=== PATIENT | female | born 1940 | race Caucasian/White ===

== ENCOUNTER 2019-03-10 10:43 | Observation (INO) | payer BC, MEDICARE ==
--- NOTE | 2019-03-10 11:35 | EDM.PDOC ---
ED HPI GENERAL MEDICAL PROBLEM - General Chief Complaint: General Stated Complaint: MED[facility] Time Seen by Provider: 03/10/19 11:00 Source of Information: Reports: Patient, EMS, Family History Limitations: Reports: No Limitations - History of Present Illness INITIAL COMMENTS - FREE TEXT/NARRATIVE: 78-year-old female brought in by ambulance, mainly at the request of her son because of several falls over the past 3 days. This morning he found her on the floor next to her recliner chair, at some point and overnight she fell out of the chair and decided to just sleep on the floor. She has some mild left shoulder discomfort, no other specific complaint. She herself does not want to be here, she just wants to . No shortness of breath or chest pain. She has hypertension but doesn't take medicine as prescribed. She is supposed be taking hydrochlorothiazide and lisinopril. The family is wondering if she's had a stroke, her glucose was checked in route by EMS which was within normal limits. Family also feels that she has persistent slurred speech and doesn't seen a strong on the right side although this is not appreciable from EMS or my immediate assessment. Onset: Unknown/Unsure Associated Symptoms: Reports: Confusion (Over the past several months she's had increasing confusion, repetitive stories and apparent developing dementia), Weakness. 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 & Family History - Tobacco Use Smoking Status *Q: Former Smoker Years of Tobacco use: 1 Packs/Tins Daily: 1 Used Tobacco, but Quit: Yes Month/Year Tobacco Last Used: 09/1989 - Caffeine Use Caffeine Use: Reports: Coffee Caffeine Use Comment: one cup per day - Alcohol Use Days Per Week of Alcohol Use: 7 Number of Drinks Per Day: 3 Total Drinks Per Week: 21 Date of Last Drink: 03/10/19 - Recreational Drug Use Recreational Drug Use: No ED ROS GENERAL - Review of Systems Review Of Systems: See Below Constitutional: Denies: Fever, Chills, Malaise HEENT: Denies: Vision Change Respiratory: Denies: Shortness of Breath Cardiovascular: Denies: Chest Pain GI/Abdominal: Denies: Abdominal Pain, Nausea, Vomiting : Reports: No Symptoms Musculoskeletal: Reports: Shoulder Pain (Mild left shoulder pain, especially with movement) Skin: Denies: Bruising Neurological: Reports: Confusion ED EXAM, GENERAL - Physical Exam Exam: See Below Exam Limited By: No Limitations General Appearance: Alert, No Apparent Distress Eye Exam: Bilateral Eye: EOMI, PERRL Head: Atraumatic, Normocephalic Neck: Supple, Non-Tender Respiratory/Chest: No Respiratory Distress, Lungs Clear Cardiovascular: Regular Rate, Rhythm. No: Extra Beats GI/Abdominal: Soft, Non-Tender Extremities: Other (Right lower extremity has 1+ pitting edema to the knee, left has a trace if any edema. Some mild tenderness to palpation of the posterior lower right leg.) Neurological: Alert, Oriented, Other (Her speech is generally slurred slightly, there is no significant expressive aphasia, more of a very minimal dysarthria. I don't appreciate facial asymmetry, her upper and lower extremities are generally equal in strength with the family claims that her right side is usually stronger.) Psychiatric: Normal Affect, Normal Mood Skin Exam: Warm, Dry Course - Vital Signs Last Recorded V/S: Last Vital Signs Temp 97.4 F 03/12/19 04:00 Pulse 91 03/12/19 04:00 Resp 16 03/12/19 04:00 BP 160/95 H 03/12/19 04:00 Pulse Ox 96 03/12/19 04:00 - Orders/Labs/Meds Orders: Medication Orders Acetaminophen (Tylenol) 650 mg PO Q4H PRN PRN Reason: Pain (Mild 1-3)/fever Last Admin: 03/11/19 00:40 Dose: 650 mg Hydrocodone Bitart/Acetaminophen ([place] 325-10 Mg) 1 tab PO Q4H PRN PRN Reason: Pain Last Admin: 03/11/19 20:27 Dose: 1 tab Admin: 03/11/19 13:44 Dose: 1 tab Aspirin (Aspirin) 81 mg PO DAILY [facility] Last Admin: 03/11/19 09:32 Dose: 81 mg Admin: 03/10/19 18:36 Dose: 81 mg Divalproex Sodium (Divalproex Sodium) 250 mg PO BIDMEALS [facility] Last Admin: 03/11/19 17:07 Dose: 250 mg Admin: 03/11/19 08:07 Dose: 250 mg Admin: 03/10/19 17:34 Dose: 250 mg Enoxaparin Sodium (Lovenox) 40 mg SUBCUT Q24H [facility] Last Admin: 03/11/19 17:07 Dose: 40 mg Hydrochlorothiazide (Hydrochlorothiazide) 12.5 mg PO DAILY [facility] Last Admin: 03/11/19 08:07 Dose: 12.5 mg Admin: 03/10/19 17:34 Dose: 12.5 mg Lisinopril (Prinivil) 20 mg PO DAILY [facility] Last Admin: 03/11/19 08:07 Dose: 20 mg Admin: 03/10/19 17:34 Dose: 20 mg Melatonin (Melatonin) 9 mg PO BEDTIME [facility] Last Admin: 03/11/19 20:27 Dose: 9 mg Admin: 03/10/19 22:09 Dose: 9 mg Ondansetron HCl (Zofran) 4 mg IV Q4H PRN PRN Reason: Nausea/Vomiting Polyethylene Glycol (Miralax) 17 gm PO DAILY PRN PRN Reason: Constipation Sodium Chloride (Saline Flush) 10 ml FLUSH ASDIRECTED PRN PRN Reason: Keep Vein Open Labs: Laboratory Tests 03/10/19 03/10/19 03/10/19 Range/Units 12:08 12:08 12:08 WBC 9.9 (4.5-11.0) K/uL RBC 4.12 (3.30-5.50) M/uL Hgb 12.3 (12.0-15.0) g/dL Hct 38.5 (36.0-48.0) % MCV 93 (80-98) fL MCH 30 (27-31) pg MCHC 32 (32-36) % Plt Count 207 (150-400) K/uL Neut % (Auto) 87 H (36-66) % Lymph % (Auto) 6 L (24-44) % [place] % (Auto) 6 (2-6) % Eos % (Auto) 1 L (2-4) % Baso % (Auto) 0 (0-1) % D-Dimer, Quantitative 874 H (0.0-400.0) ng/mL Sodium 138 L (140-148) mmol/L Potassium 4.3 (3.6-5.2) mmol/L Chloride 104 (100-108) mmol/L Carbon Dioxide 28 (21-32) mmol/L Anion Gap 10.3 (5.0-14.0) mmol/L BUN 27 H D (7-18) mg/dL Creatinine 1.3 H (0.6-1.0) mg/dL Est Cr Clr Drug Dosing 29.80 mL/min Estimated GFR (MDRD) 39 L (>60) Glucose 99 (74-106) mg/dL Calcium 9.0 (8.5-10.1) mg/dL Total Bilirubin 1.0 D (0.2-1.0) mg/dL AST 37 (15-37) U/L ALT 25 (12-78) U/L Alkaline Phosphatase 58 (46-116) U/L Creatine Kinase (26-192) U/L Total Protein 6.7 (6.4-8.2) g/dL Albumin 3.2 L (3.4-5.0) g/dL Globulin 3.5 (2.3-3.5) g/dL Albumin/Globulin Ratio 0.9 L (1.2-2.2) 03/10/19 Range/Units 12:08 WBC (4.5-11.0) K/uL RBC (3.30-5.50) M/uL Hgb (12.0-15.0) g/dL Hct (36.0-48.0) % MCV (80-98) fL MCH (27-31) pg MCHC (32-36) % Plt Count (150-400) K/uL Neut % (Auto) (36-66) % Lymph % (Auto) (24-44) % [place] % (Auto) (2-6) % Eos % (Auto) (2-4) % Baso % (Auto) (0-1) % D-Dimer, Quantitative (0.0-400.0) ng/mL Sodium (140-148) mmol/L Potassium (3.6-5.2) mmol/L Chloride (100-108) mmol/L Carbon Dioxide (21-32) mmol/L Anion Gap (5.0-14.0) mmol/L BUN (7-18) mg/dL Creatinine (0.6-1.0) mg/dL Est Cr Clr Drug Dosing mL/min Estimated GFR (MDRD) (>60) Glucose (74-106) mg/dL Calcium (8.5-10.1) mg/dL Total Bilirubin (0.2-1.0) mg/dL AST (15-37) U/L ALT (12-78) U/L Alkaline Phosphatase (46-116) U/L Creatine Kinase 419 H (26-192) U/L Total Protein (6.4-8.2) g/dL Albumin (3.4-5.0) g/dL Globulin (2.3-3.5) g/dL Albumin/Globulin Ratio (1.2-2.2) Meds: Medications Generic Name Dose Route Start Last Admin Trade Name Freq PRN Reason Stop Dose Admin Acetaminophen 650 mg 03/10/19 16:09 03/11/19 00:40 Tylenol PO 650 mg Q4H PRN Administration Pain (Mild 1-3)/fever Hydrocodone Bitart/Acetaminophen 1 tab 03/11/19 13:18 03/11/19 20:27 Cornish 325-10 Mg PO 1 tab Q4H PRN Administration Pain Aspirin 81 mg 03/10/19 18:30 03/11/19 09:32 Aspirin PO 81 mg DAILY [facility] Administration Divalproex Sodium 250 mg 03/10/19 17:00 03/11/19 17:07 Divalproex Sodium PO 250 mg BIDMEALS [facility] Administration Enoxaparin Sodium 40 mg 03/11/19 18:00 03/11/19 17:07 Lovenox SUBCUT 40 mg Q24H [facility] Administration Hydrochlorothiazide 12.5 mg 03/10/19 16:30 03/11/19 08:07 Hydrochlorothiazide PO 12.5 mg DAILY [facility] Administration Lisinopril 20 mg 03/10/19 16:30 03/11/19 08:07 Prinivil PO 20 mg DAILY [facility] Administration Melatonin 9 mg 03/10/19 21:00 03/11/19 20:27 Melatonin PO 9 mg BEDTIME [facility] Administration Ondansetron HCl 4 mg 03/10/19 16:09 Zofran IV Q4H PRN Nausea/Vomiting Polyethylene Glycol 17 gm 03/10/19 16:09 Miralax PO DAILY PRN Constipation Sodium Chloride 10 ml 03/10/19 16:09 Saline Flush FLUSH ASDIRECTED PRN Keep Vein Open Discontinued Medications Generic Name Dose Route Start Last Admin Trade Name Freq PRN Reason Stop Dose Admin Enoxaparin Sodium 30 mg 03/10/19 18:00 03/10/19 17:34 Lovenox SUBCUT 30 mg Q24H [facility] Administration Sodium Chloride 1,000 mls @ 500 mls/hr 03/10/19 13:15 03/10/19 13:44 Normal Saline IV 500 mls/hr ASDIRECTED [facility] Administration Sodium Chloride 1,000 mls @ 75 mls/hr 03/10/19 16:09 03/11/19 05:38 Normal Saline IV 75 mls/hr ASDIRECTED [facility] Administration - Re-Assessments/Exams Free Text/Narrative Re-Assessment/Exam: 03/10/19 11:35 CBC CMP d-dimer and CK were obtained, along with a CT of the head and left shoulder x-ray. 03/10/19 13:44 CBC is normal, d-dimer mildly elevated and CK 491. CT of the head showed atrophy but no acute findings. Left shoulder x-ray was negative. Because of the elevated d-dimer and asymmetric swelling of the lower extremity her right leg was assessed with ultrasound and was negative for DVT. Her blood pressure was elevated on arrival but normalized without treatment. Creatinine was elevated at 1.3 compared to 1.0 just a month ago, GFR has also dropped into the 30s so she was hydrated with 1 L of normal saline over 2 hours. When I discussed all these findings with the family, they were concerned about her ability to go home without continuing to fall and her noncompliance with medications. They're hoping she can be admitted for further observation, hydration, strengthening, and social service consultation for placement or other options of care. Departure - Departure Time of Disposition: 16:14 Disposition: Admitted As Inpatient 64 Clinical Impression: Weakness generalized, Dehydration Contusion of shoulder, left Qualifiers: Encounter type: initial encounter Qualified Code(s): S40.012A - Contusion of left shoulder, initial encounter - Discharge Information
--- NOTE | 2019-03-10 12:18 | CRLCR ---
INDICATION: Patient fell; pain left shoulder. COMPARISON: None. Technique: Two-view study left shoulder. FINDINGS: No evidence of fracture or dislocation. No bone or soft tissue abnormalities. IMPRESSION: Negative radiographic examination of the left shoulder. Dictated by Deena Best MD @ Mar 10 2019 12:15PM Signed by Dr. Deena Best @ Mar 10 2019 12:16PM
--- NOTE | 2019-03-10 12:35 | CRLCT ---
INDICATION: 78-year-old female. Falls. Increased weakness. TECHNIQUE: CT images foramen magnum to the vertex without contrast. FINDINGS: The ventricles and subarachnoid spaces are proportionately enlarged due to a fall. No acute hemorrhage. No mass effect. Preservation of marcos-white interface without evidence of focal infarction. No posterior fossa hemorrhage or mass effect. Bony calvarium is unremarkable. IMPRESSION: No evidence of acute intracranial hemorrhage or skull fracture. atrophy and age-related findings. Please note that all CT scans at this facility use dose modulation, iterative reconstruction, and/or weight-based dosing when appropriate to reduce radiation dose to as low as reasonably achievable. Dictated by Jose Miguel Brizuela MD @ Mar 10 2019 12:12PM Signed by Dr. Jose Miguel Brizuela @ Mar 10 2019 12:33PM
[2019-03-10] MEDS ORDERED: Sodium Chloride 0.9% 1,000 ML IV SCH (13:15)
--- NOTE | 2019-03-10 13:58 | CRLUS ---
INDICATION: Leg pain and swelling TECHNIQUE: Ultrasound venous duplex lower right extremity. Compression venous exam was performed using marcos-scale, color Doppler, and spectral Doppler imaging. COMPARISON: None. FINDINGS: Sonographic imaging demonstrates the right common femoral, deep femoral, superficial femoral, popliteal, posterior tibial and greater saphenous and the contralateral left common femoral veins to be fully compressible with normal color Doppler blood flow. IMPRESSION: Normal right lower extremity venous ultrasound, no sign of deep venous thrombosis. Dictated by Vinnie Bowie MD @ 03/10/2019 1:57:09 PM Dictated by: Vinnie Bowie MD @ 03/10/2019 13:57:19 (Electronically Signed)
[2019-03-10] MEDS ORDERED: Polyethylene Glycol 3350 Powder 17 GM Packet PO PRN (16:09)
[2019-03-10] MEDS ORDERED: Sodium Chloride 0.9% 10 ML Syringe FLUSH PRN (16:09)
[2019-03-10] MEDS ORDERED: Acetaminophen 325 MG Tab PO PRN (16:09)
[2019-03-10] MEDS ORDERED: Ondansetron 4 MG/2 ML SDV IV PRN (16:09)
[2019-03-10] MEDS ORDERED: Enoxaparin 40 MG/0.4 ML Syringe SUBCUT SCH (16:09)
[2019-03-10] MEDS: Hydrochlorothiazide 12.5 MG Cap PO SCH (17:34)
[2019-03-10] MEDS: Divalproex Sodium Delayed-Release 250 MG Tab.CR PO SCH (17:34)
[2019-03-10] MEDS: Lisinopril 20 MG Tab PO SCH (17:34)
[2019-03-10] MEDS: Sodium Chloride 0.9% 1,000 ML IV SCH (17:43)
[2019-03-10] MEDS ORDERED: Enoxaparin 30 MG/0.3 ML Syringe SUBCUT SCH (18:00)
--- NOTE | 2019-03-10 18:00 | PCM.HP ---
H&P History of Present Illness - General Date of Service: 03/10/19 Admit Problem/Dx: Admission Diagnosis/Problem Admission Diagnosis/Problem Weakness Source of Information: Family, Provider, RN Notes Reviewed History Limitations: Reports: Altered Mental Status (Significant dementia) - History of Present Illness Initial Comments - Free Text/Narative: Ms. Blanchard is an 78-year-old woman who was admitted through the emergency department to observation status because of increased weakness and several recent falls at home. I'm unable to obtain significant history from the patient because of her underlying dementia. Family reports that she has had 4 falls over the last 3 days. Family has noted right-sided weakness causing inability to ambulate or transfer. Compared to yesterday they feel the weakness has improved. They do not want to proceed with aggressive interventions or evaluation. 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 History - Tobacco Use Smoking Status *Q: Never Smoker Years of Tobacco use: 1 Packs/Tins Daily: 1 Used Tobacco, but Quit: Yes Month/Year Tobacco Last Used: 09/1989 Second Hand Smoke Exposure: No - Caffeine Use Caffeine Use: Reports: None Caffeine Use Comment: one cup per day - Alcohol Use Days Per Week of Alcohol Use: 7 Number of Drinks Per Day: 1 Total Drinks Per Week: 7 Date of Last Drink: 03/10/19 - Recreational Drug Use Recreational Drug Use: No H&P Review of Systems - Review of Systems: Review Of Systems: Unable To Obtain General: Reports: ROS unobtainable (Dementia) Exam - Exam Exam: See Below - Vital Signs Vital Signs: Last Vital Signs Temp 97.2 F 03/10/19 16:09 Pulse 64 03/10/19 16:09 Resp 18 03/10/19 16:09 BP 171/112 H 03/10/19 17:34 Pulse Ox 100 03/10/19 10:53 Weight: 128 lb 6.4 oz - Exam Quality Assessment: DVT Prophylaxis General: Alert, Cooperative, Mild Distress HEENT: Conjunctiva Clear, Hearing Intact, Normal Nasal Septum, Posterior Pharynx Clear, Pupils Equal. No: Mucosa Moist & [place] Neck: Supple, Trachea Midline, +2 Carotid Pulse wo Bruit Lungs: Clear to Auscultation, Normal Respiratory Effort Cardiovascular: Regular Rate, Regular Rhythm, Normal S1, Normal S2. No: Systolic Murmur, Diastolic Murmur GI/Abdominal Exam: Soft, Non-Tender, No Organomegaly, No Distention Back Exam: Normal Inspection, Full Range of Motion Extremities: Non-Tender, No Pedal Edema Skin: Warm, Dry, Ecchymosis Neurological: Sensation Intact. No: Cranial Nerves Intact (Mild right facial weakness), Strength Equal Bilateral (Mild weakness right upper extremity with discoordination), Normal Speech (Speech is somewhat slurred) Neuro Extensive - Mental Status: Alert, Normal Mood/Affect, Disorientation to Place, Disorientation to Time, Memory Loss-Remote Events, Memory Loss-Recent Events. No: Oriented x3, Normal Cognition, Memory Intact - Patient Data Lab Results Last 24 hrs: Laboratory Results - last 24 hr 03/10/19 03/10/19 03/10/19 Range/Units 12:08 12:08 12:08 WBC 9.9 (4.5-11.0) K/uL RBC 4.12 (3.30-5.50) M/uL Hgb 12.3 (12.0-15.0) g/dL Hct 38.5 (36.0-48.0) % MCV 93 (80-98) fL MCH 30 (27-31) pg MCHC 32 (32-36) % Plt Count 207 (150-400) K/uL Neut % (Auto) 87 H (36-66) % Lymph % (Auto) 6 L (24-44) % [place] % (Auto) 6 (2-6) % Eos % (Auto) 1 L (2-4) % Baso % (Auto) 0 (0-1) % D-Dimer, Quantitative 874 H (0.0-400.0) ng/mL Sodium 138 L (140-148) mmol/L Potassium 4.3 (3.6-5.2) mmol/L Chloride 104 (100-108) mmol/L Carbon Dioxide 28 (21-32) mmol/L Anion Gap 10.3 (5.0-14.0) mmol/L BUN 27 H D (7-18) mg/dL Creatinine 1.3 H (0.6-1.0) mg/dL Est Cr Clr Drug Dosing 29.80 mL/min Estimated GFR (MDRD) 39 L (>60) Glucose 99 (74-106) mg/dL Calcium 9.0 (8.5-10.1) mg/dL Total Bilirubin 1.0 D (0.2-1.0) mg/dL AST 37 (15-37) U/L ALT 25 (12-78) U/L Alkaline Phosphatase 58 (46-116) U/L Creatine Kinase (26-192) U/L Total Protein 6.7 (6.4-8.2) g/dL Albumin 3.2 L (3.4-5.0) g/dL Globulin 3.5 (2.3-3.5) g/dL Albumin/Globulin Ratio 0.9 L (1.2-2.2) 03/10/19 Range/Units 12:08 WBC (4.5-11.0) K/uL RBC (3.30-5.50) M/uL Hgb (12.0-15.0) g/dL Hct (36.0-48.0) % MCV (80-98) fL MCH (27-31) pg MCHC (32-36) % Plt Count (150-400) K/uL Neut % (Auto) (36-66) % Lymph % (Auto) (24-44) % [place] % (Auto) (2-6) % Eos % (Auto) (2-4) % Baso % (Auto) (0-1) % D-Dimer, Quantitative (0.0-400.0) ng/mL Sodium (140-148) mmol/L Potassium (3.6-5.2) mmol/L Chloride (100-108) mmol/L Carbon Dioxide (21-32) mmol/L Anion Gap (5.0-14.0) mmol/L BUN (7-18) mg/dL Creatinine (0.6-1.0) mg/dL Est Cr Clr Drug Dosing mL/min Estimated GFR (MDRD) (>60) Glucose (74-106) mg/dL Calcium (8.5-10.1) mg/dL Total Bilirubin (0.2-1.0) mg/dL AST (15-37) U/L ALT (12-78) U/L Alkaline Phosphatase (46-116) U/L Creatine Kinase 419 H (26-192) U/L Total Protein (6.4-8.2) g/dL Albumin (3.4-5.0) g/dL Globulin (2.3-3.5) g/dL Albumin/Globulin Ratio (1.2-2.2) Result Diagrams: 03/10/19 12:08 03/10/19 12:08 *Q Meaningful Use (ADM) - VTE Risk Assess *Q Each Risk Factor Represents 1 Point: None Total Score 1 Point Risk Factors: 0 Each Risk Factor Represents 2 Points: None Total Score 2 Point Risk Factors: 0 Each Risk Factor Represents 3 Points: Age 75 Years or Greater Total Score 3 Point Risk Factors: 3 Each Risk Factor Represents 5 Points: None Total Score 5 Point Risk Factors: 0 Venous Thromboembolism Risk Factor Score *Q: 3 Problem List Initiated/Reviewed/Updated: Yes Orders Last 24hrs: Active Orders 24 hr Category Date Time Status Patient Status [ADT] Routine ADT 03/10/19 16:09 Active Ambulate [RC] QID Care 03/10/19 16:09 Active Height and Weight [RC] DAILY Care 03/10/19 16:09 Active Intake and Output [RC] QSHIFT Care 03/10/19 16:09 Active Notify Provider Vital Signs [RC] ASDIRECTED Care 03/10/19 16:09 Active Oxygen Therapy [RC] PRN Care 03/10/19 16:09 Active Peripheral IV Care [RC] . DIRECTED Care 03/10/19 16:09 Active Up With Assistance [RC] ASDIRECTED Care 03/10/19 16:09 Active Up to Chair [RC] QID Care 03/10/19 16:09 Active Vital Signs [RC] Q4H Care 03/10/19 16:09 Active Regular Diet [DIET] Diet 03/10/19 Lunch Active BASIC METABOLIC PANEL,BMP [CHEM] AM Lab 03/11/19 05:11 Ordered CBC WITH AUTO DIFF [HEME] AM Lab 03/11/19 05:11 Ordered TSH ULTRASENSITIVE [CHEM] Timed Lab 03/11/19 05:00 Ordered Acetaminophen [Tylenol] Med 03/10/19 16:09 Active 650 mg PO Q4H PRN Divalproex Sodium Med 03/10/19 17:00 Active 250 mg PO BIDMEALS Enoxaparin [Lovenox] Med 03/10/19 18:00 Active 30 mg SUBCUT Q24H Lisinopril [Prinivil] Med 03/10/19 16:30 Active 20 mg PO DAILY Melatonin Med 03/10/19 21:00 Active 9 mg PO BEDTIME Ondansetron [Zofran] Med 03/10/19 16:09 Active 4 mg IV Q4H PRN Polyethylene Glycol 3350 [MiraLAX] Med 03/10/19 16:09 Active 17 gm PO DAILY PRN Sodium Chloride 0.9% [Normal Saline] 1,000 ml Med 03/10/19 16:09 Active IV ASDIRECTED Sodium Chloride 0.9% [Saline Flush] Med 03/10/19 16:09 Active 10 ml FLUSH ASDIRECTED PRN hydroCHLOROthiazide Med 03/10/19 16:30 Active 12.5 mg PO DAILY Peripheral IV Insertion Adult [OM.PC] Routine Oth 03/10/19 16:09 Ordered Resuscitation Status Routine Resus Stat 03/10/19 15:18 Ordered Medication Orders Acetaminophen (Tylenol) 650 mg PO Q4H PRN PRN Reason: Pain (Mild 1-3)/fever Divalproex Sodium (Divalproex Sodium) 250 mg PO BIDMEALS [facility] Last Admin: 03/10/19 17:34 Dose: 250 mg Enoxaparin Sodium (Lovenox) 30 mg SUBCUT Q24H [facility] Last Admin: 03/10/19 17:34 Dose: 30 mg Hydrochlorothiazide (Hydrochlorothiazide) 12.5 mg PO DAILY [facility] Last Admin: 03/10/19 17:34 Dose: 12.5 mg Sodium Chloride (Normal Saline) 1,000 mls @ 75 mls/hr IV ASDIRECTED [facility] Last Admin: 03/10/19 17:43 Dose: 75 mls/hr Lisinopril (Prinivil) 20 mg PO DAILY [facility] Last Admin: 03/10/19 17:34 Dose: 20 mg Melatonin (Melatonin) 9 mg PO BEDTIME [facility] Ondansetron HCl (Zofran) 4 mg IV Q4H PRN PRN Reason: Nausea/Vomiting Polyethylene Glycol (Miralax) 17 gm PO DAILY PRN PRN Reason: Constipation Sodium Chloride (Saline Flush) 10 ml FLUSH ASDIRECTED PRN PRN Reason: Keep Vein Open Assessment/Plan Comment:: ASSESSMENT AND PLAN RIGHT-SIDED WEAKNESS WITH RECENT FALLS-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 Weakness has improved over the last 24 hours but not totally resolved. CT scan of the head obtained in the emergency department without contrast shows atrophy but no acute abnormalities. Family is not sure that they want to proceed with further aggressive intervention or evaluation. They are aware that we do not have MRI or echocardiogram available here over the weekend. -Aspirin 81 mg by mouth daily -Neuro checks every 4 hours -Physical therapy consult -We'll rediscuss management with family in a.m., at the present time they do not want to consider further aggressive evaluation or intervention DEHYDRATION-poor oral intake over the past few days -IV fluids overnight -Reassess in a.m. DEMENTIA-mild agitation, at high risk for delirium -Melatonin 9 mg by mouth daily at bedtime -Depakote 250 mg by mouth twice a day PALLIATIVE CARE-per patient's previously expressed wishes, family does not want to consider aggressive interventions or evaluation at this time MAINTENANCE ISSUES -DVT prophylaxis; Lovenox 40 mg subcutaneous daily -GI prophylaxis; not indicated -Castro catheter; not indicated -Nutrition; regular diet -Nicotine dependence; not required CODE STATUS-DNR/DNI ADMISSION STATUS-this patient will be admitted to observation status, expect no more than a one night hospital stay for evaluation and management of problems as outlined above. DISPOSITION-anticipate discharge to home after the hospital stay. PRIMARY CARE PROVIDER-Dr. Wylie
[2019-03-10] MEDS: Aspirin 81 MG Tab.Chew PO SCH (18:36)
[2019-03-10] MEDS: Melatonin 3 MG Tab PO SCH (22:09)
[2019-03-11] MEDS: Sodium Chloride 0.9% 1,000 ML IV SCH (05:38)
[2019-03-11] MEDS: Lisinopril 20 MG Tab PO SCH (08:07)
[2019-03-11] MEDS: Divalproex Sodium Delayed-Release 250 MG Tab.CR PO SCH ×2 (08:07→17:07)
[2019-03-11] MEDS: Hydrochlorothiazide 12.5 MG Cap PO SCH (08:07)
[2019-03-11] MEDS: Aspirin 81 MG Tab.Chew PO SCH (09:32)
[2019-03-11] MEDS: Acetaminophen/HYDROcodone 325-10 MG Tab PO PRN ×2 (13:44→20:27)
--- NOTE | 2019-03-11 14:49 | PCM.PN ---
- General Info Date of Service: 03/11/19 Subjective Update: Ms. Blanchard shown some improvement from admission, modest improvement in strength on the right side. She continues to have marked difficulty with transfers and ambulation. Remains confused Ammann but has not had significant agitation. Functional Status: Reports: Tolerating Diet, Urinating. Denies: Ambulating - Review of Systems General: Reports: Weakness. Denies: Fever, Chills Pulmonary: Reports: No Symptoms Cardiovascular: Reports: No Symptoms Gastrointestinal: Reports: No Symptoms Neurological: Reports: Other (Right facial weakness has resolved, persistent weakness right arm and leg) Psychiatric: Reports: Mood Lability - Patient Data Vitals - Most Recent: Last Vital Signs Temp 97.4 F 03/11/19 14:20 Pulse 88 03/11/19 14:20 Resp 18 03/11/19 14:20 BP 182/60 H 03/11/19 14:20 Pulse Ox 98 03/11/19 14:20 Weight - Most Recent: 128 lb 6.4 oz I&O - Last 24 Hours: Intake & Output 03/10/19 03/11/19 03/11/19 22:59 06:59 14:59 Intake Total 884 360 Output Total 300 Balance 884 60 Lab Results Last 24 Hours: Laboratory Results - last 24 hr 03/11/19 03/11/19 03/11/19 Range/Units 05:23 05:23 05:23 WBC 6.2 (4.5-11.0) K/uL RBC 3.20 L (3.30-5.50) M/uL Hgb 9.6 L D (12.0-15.0) g/dL Hct 30.7 L (36.0-48.0) % MCV 96 (80-98) fL MCH 30 (27-31) pg MCHC 31 L (32-36) % Plt Count 188 (150-400) K/uL Neut % (Auto) 77 H (36-66) % Lymph % (Auto) 11 L (24-44) % [place] % (Auto) 8 H (2-6) % Eos % (Auto) 4 (2-4) % Baso % (Auto) 0 (0-1) % Sodium 143 (140-148) mmol/L Potassium 3.6 (3.6-5.2) mmol/L Chloride 110 H (100-108) mmol/L Carbon Dioxide 25 (21-32) mmol/L Anion Gap 11.6 (5.0-14.0) mmol/L BUN 24 H (7-18) mg/dL Creatinine 1.1 H (0.6-1.0) mg/dL Est Cr Clr Drug Dosing 35.22 mL/min Estimated GFR (MDRD) 48 L (>60) Glucose 89 (74-106) mg/dL Calcium 8.0 L (8.5-10.1) mg/dL TSH, Ultra Sensitive 2.623 (0.358-3.740) uIU/mL Med Orders - Current: Current Medications Acetaminophen (Tylenol) 650 mg PO Q4H PRN PRN Reason: Pain (Mild 1-3)/fever Last Admin: 03/11/19 00:40 Dose: 650 mg Hydrocodone Bitart/Acetaminophen ([place] 325-10 Mg) 1 tab PO Q4H PRN PRN Reason: Pain Last Admin: 03/11/19 13:44 Dose: 1 tab Aspirin (Aspirin) 81 mg PO DAILY [facility] Last Admin: 03/11/19 09:32 Dose: 81 mg Divalproex Sodium (Divalproex Sodium) 250 mg PO BIDMEALS [facility] Last Admin: 03/11/19 08:07 Dose: 250 mg Enoxaparin Sodium (Lovenox) 40 mg SUBCUT Q24H [facility] Hydrochlorothiazide (Hydrochlorothiazide) 12.5 mg PO DAILY [facility] Last Admin: 03/11/19 08:07 Dose: 12.5 mg Sodium Chloride (Normal Saline) 1,000 mls @ 75 mls/hr IV ASDIRECTED [facility] Last Admin: 03/11/19 05:38 Dose: 75 mls/hr Lisinopril (Prinivil) 20 mg PO DAILY [facility] Last Admin: 03/11/19 08:07 Dose: 20 mg Melatonin (Melatonin) 9 mg PO BEDTIME [facility] Last Admin: 03/10/19 22:09 Dose: 9 mg Ondansetron HCl (Zofran) 4 mg IV Q4H PRN PRN Reason: Nausea/Vomiting Polyethylene Glycol (Miralax) 17 gm PO DAILY PRN PRN Reason: Constipation Sodium Chloride (Saline Flush) 10 ml FLUSH ASDIRECTED PRN PRN Reason: Keep Vein Open Discontinued Medications Enoxaparin Sodium (Lovenox) 30 mg SUBCUT Q24H [facility] Last Admin: 03/10/19 17:34 Dose: 30 mg Sodium Chloride (Normal Saline) 1,000 mls @ 500 mls/hr IV ASDIRECTED [facility] Last Admin: 03/10/19 13:44 Dose: 500 mls/hr - Exam General: Alert, Cooperative, Mild Distress Lungs: Clear to Auscultation, Normal Respiratory Effort Cardiovascular: Regular Rate, Regular Rhythm, No Murmurs GI/Abdominal Exam: Soft, Non-Tender, No Organomegaly, No Distention Skin: Ecchymosis Neurological: Other (Slurred speech and right facial weakness have resolved, persistent weakness right arm and leg) - Problem List Review Problem List Initiated/Reviewed/Updated: Yes - My Orders Last 24 Hours: My Active Orders 03/10/19 15:18 Resuscitation Status Routine 03/10/19 16:09 Patient Status [ADT] Routine Ambulate [RC] QID Height and Weight [RC] DAILY Intake and Output [RC] QSHIFT Notify Provider Vital Signs [RC] ASDIRECTED Oxygen Therapy [RC] PRN Peripheral IV Care [RC] . DIRECTED Up With Assistance [RC] ASDIRECTED Up to Chair [RC] QID Vital Signs [RC] Q4H Acetaminophen [Tylenol] 650 mg PO Q4H PRN Ondansetron [Zofran] 4 mg IV Q4H PRN Polyethylene Glycol 3350 [MiraLAX] 17 gm PO DAILY PRN Sodium Chloride 0.9% [Normal Saline] 1,000 ml IV ASDIRECTED Sodium Chloride 0.9% [Saline Flush] 10 ml FLUSH ASDIRECTED PRN Peripheral IV Insertion Adult [OM.PC] Routine 03/10/19 16:30 Lisinopril [Prinivil] 20 mg PO DAILY hydroCHLOROthiazide 12.5 mg PO DAILY 03/10/19 17:00 Divalproex Sodium 250 mg PO BIDMEALS 03/10/19 18:22 Neuro Check [RC] Q4H 03/10/19 18:30 Aspirin 81 mg PO DAILY 03/10/19 19:14 Consult to Physical Therapy [PT Evaluation and Treatment] [CONS] Routine 03/10/19 21:00 Melatonin 9 mg PO BEDTIME 03/11/19 13:18 Acetaminophen/HYDROcodone [[place] 325-10 MG] 1 tab PO Q4H PRN 03/11/19 18:00 Enoxaparin [Lovenox] 40 mg SUBCUT Q24H - Plan Plan:: ASSESSMENT AND PLAN LEFT CVA WITH RIGHT-SIDED WEAKNESS-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 Weakness has improved somewhat since admission, slurred speech is better and left facial weakness appears to have resolved. She is unable to transfer or ambulate independently. Beronica has decided not to pursue aggressive interventions or evaluation -Aspirin 81 mg by mouth daily -Physical therapy consult -Plan for discharge to memory unit DEHYDRATION-poor oral intake over the past few days -Saline lock IV DEMENTIA-no significant agitation or delirium with current management -Melatonin 9 mg by mouth daily at bedtime -Depakote 250 mg by mouth twice a day PALLIATIVE CARE-per patient's previously expressed wishes, family does not want to consider aggressive interventions or evaluation at this time MAINTENANCE ISSUES -DVT prophylaxis; Lovenox 40 mg subcutaneous daily -GI prophylaxis; not indicated -Castro catheter; not indicated -Nutrition; regular diet -Nicotine dependence; not required CODE STATUS-DNR/DNI ADMISSION STATUS-this patient will be admitted to observation status, expect no more than a one night hospital stay for evaluation and management of problems as outlined above. DISPOSITION-anticipate discharge to home after the hospital stay. PRIMARY CARE PROVIDER-Dr. Wylie
[2019-03-11] MEDS: Enoxaparin 40 MG/0.4 ML Syringe SUBCUT SCH (17:07)
[2019-03-11] MEDS: Melatonin 3 MG Tab PO SCH (20:27)
[2019-03-12] MEDS: Acetaminophen/HYDROcodone 325-10 MG Tab PO PRN ×2 (07:55→14:17)
[2019-03-12] MEDS: Divalproex Sodium Delayed-Release 250 MG Tab.CR PO SCH ×2 (07:55→16:38)
[2019-03-12] MEDS: Lisinopril 20 MG Tab PO SCH (08:00)
[2019-03-12] MEDS: Hydrochlorothiazide 12.5 MG Cap PO SCH (08:00)
[2019-03-12] MEDS: Aspirin 81 MG Tab.Chew PO SCH (08:00)
--- NOTE | 2019-03-12 15:05 | PCM.PN ---
- General Info Date of Service: 03/12/19 Subjective Update: Ms. Hayden has remained stable since yesterday, ongoing wasn't confusion. There has been no significant agitation noted thus far with current management. Because of her dementia she is unable to provide meaningful history concerning recent symptoms or review of systems. - Patient Data Vitals - Most Recent: Last Vital Signs Temp 98.8 F 03/12/19 14:50 Pulse 95 03/12/19 14:50 Resp 18 03/12/19 14:50 BP 168/55 H 03/12/19 14:50 Pulse Ox 100 03/12/19 14:50 Weight - Most Recent: 134 lb 3.2 oz I&O - Last 24 Hours: Intake & Output 03/12/19 03/12/19 03/12/19 06:59 14:59 22:59 Intake Total 200 280 Output Total 100 300 Balance 100 -20 Med Orders - Current: Current Medications Acetaminophen (Tylenol) 650 mg PO Q4H PRN PRN Reason: Pain (Mild 1-3)/fever Last Admin: 03/11/19 00:40 Dose: 650 mg Hydrocodone Bitart/Acetaminophen ([place] 325-10 Mg) 1 tab PO Q4H PRN PRN Reason: Pain Last Admin: 03/12/19 14:17 Dose: 1 tab Aspirin (Aspirin) 81 mg PO DAILY [facility] Last Admin: 03/12/19 08:00 Dose: 81 mg Divalproex Sodium (Divalproex Sodium) 250 mg PO BIDMEALS [facility] Last Admin: 03/12/19 07:55 Dose: 250 mg Enoxaparin Sodium (Lovenox) 40 mg SUBCUT Q24H [facility] Last Admin: 03/11/19 17:07 Dose: 40 mg Hydrochlorothiazide (Hydrochlorothiazide) 12.5 mg PO DAILY [facility] Last Admin: 03/12/19 08:00 Dose: 12.5 mg Lisinopril (Prinivil) 20 mg PO DAILY [facility] Last Admin: 03/12/19 08:00 Dose: 20 mg Melatonin (Melatonin) 9 mg PO BEDTIME [facility] Last Admin: 03/11/19 20:27 Dose: 9 mg Ondansetron HCl (Zofran) 4 mg IV Q4H PRN PRN Reason: Nausea/Vomiting Polyethylene Glycol (Miralax) 17 gm PO DAILY PRN PRN Reason: Constipation Sodium Chloride (Saline Flush) 10 ml FLUSH ASDIRECTED PRN PRN Reason: Keep Vein Open Discontinued Medications Enoxaparin Sodium (Lovenox) 30 mg SUBCUT Q24H [facility] Last Admin: 03/10/19 17:34 Dose: 30 mg Sodium Chloride (Normal Saline) 1,000 mls @ 500 mls/hr IV ASDIRECTED [facility] Last Admin: 03/10/19 13:44 Dose: 500 mls/hr Sodium Chloride (Normal Saline) 1,000 mls @ 75 mls/hr IV ASDIRECTED [facility] Last Admin: 03/11/19 05:38 Dose: 75 mls/hr - Exam Quality Assessment: DVT Prophylaxis General: Alert, Cooperative, No Acute Distress. No: Oriented Lungs: Clear to Auscultation, Normal Respiratory Effort Cardiovascular: Regular Rate, Regular Rhythm, No Murmurs GI/Abdominal Exam: Soft, Non-Tender, No Organomegaly, No Distention Extremities: Non-Tender, No Pedal Edema - Problem List Review Problem List Initiated/Reviewed/Updated: Yes - My Orders Last 24 Hours: My Active Orders 03/11/19 14:49 Convert IV to Saline Lock [OM.PC] Routine 03/11/19 18:00 Enoxaparin [Lovenox] 40 mg SUBCUT Q24H - Plan Plan:: ASSESSMENT AND PLAN LEFT CVA WITH RIGHT-SIDED WEAKNESS-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 Weakness has improved somewhat since admission, slurred speech is better and left facial weakness appears to have resolved. She is unable to transfer or ambulate independently. Family has decided not to pursue aggressive interventions or evaluation -Aspirin 81 mg by mouth daily -Physical therapy consult -Plan for discharge to memory unit tomorrow DEHYDRATION-resolved with IV hydration -Saline lock IV DEMENTIA-no significant agitation or delirium with current management -Melatonin 9 mg by mouth daily at bedtime -Depakote 250 mg by mouth twice a day PALLIATIVE CARE-per patient's previously expressed wishes, family does not want to consider aggressive interventions or evaluation at this time MAINTENANCE ISSUES -DVT prophylaxis; Lovenox 40 mg subcutaneous daily -GI prophylaxis; not indicated -Castro catheter; not indicated -Nutrition; regular diet -Nicotine dependence; not required CODE STATUS-DNR/DNI ADMISSION STATUS-this patient will be admitted to observation status, expect no more than a one night hospital stay for evaluation and management of problems as outlined above. DISPOSITION-anticipate discharge to home after the hospital stay. PRIMARY CARE PROVIDER-Dr. Wylie
--- NOTE | 2019-03-12 15:21 | PCM.DCSUM1 ---
Discharge Summary - Hospital Course Brief History: Ms. Blanchard is an 78-year-old woman who was admitted to observation status through the emergency department because of new right-sided weakness, likely secondary to acute left-sided CVA. Diagnosis: Stroke: Yes Modified [place] Scale: Mod.Sev.Disability ;Unable to Walk/Attend Bodily Needs W/ O Assistance Modified [place] Scale Score: 4 - Discharge Data Discharge Date: 03/12/19 Discharge Disposition: Home, W Home Health Agency 06 Condition: Poor - Discharge Diagnosis/Problem(s) (1) Acute cerebrovascular accident (CVA) SNOMED Code(s): 942503311, 692888428 ICD Code: I63.9 - CEREBRAL INFARCTION, UNSPECIFIED Status: Acute Current Visit: Yes (2) Right sided weakness SNOMED Code(s): 528323802 ICD Code: R53.1 - WEAKNESS Status: Acute Current Visit: Yes (3) Dementia SNOMED Code(s): 85041979 ICD Code: F03.90 - UNSPECIFIED DEMENTIA WITHOUT BEHAVIORAL DISTURBANCE Status: Acute Current Visit: Yes (4) Palliative care status SNOMED Code(s): 465453836 ICD Code: Z51.5 - ENCOUNTER FOR PALLIATIVE CARE Status: Acute Current Visit: Yes (5) Contusion of shoulder, left SNOMED Code(s): 60068194 ICD Code: S40.012A - CONTUSION OF LEFT SHOULDER, INITIAL ENCOUNTER Status: Acute Current Visit: Yes Qualifiers: Encounter type: initial encounter Qualified Code(s): S40.012A - Contusion of left shoulder, initial encounter (6) Dehydration SNOMED Code(s): 33648517 ICD Code: E86.0 - DEHYDRATION Status: Acute Current Visit: Yes (7) Weakness generalized SNOMED Code(s): 42149624 ICD Code: R53.1 - WEAKNESS Status: Acute Current Visit: Yes - Patient Summary/Data Consults: Consultations 03/10/19 19:14 Consult to Physical Therapy [PT Evaluation and Treatment] [CONS] Routine Please Evaluate and Treat. PT Reason for Consult: Right-sided weakness, several recent falls This query below is only for informational purposes and is not editable. Admission Diagnosis/Problem: Weakness Hospital Course: Ms. Blanchard is an 78-year-old woman who was admitted through the emergency department to observation status because of increased right sided weakness and several recent falls at home. She is unable to provide meaningful history concerning recent symptoms or review of systems because of significant dementia. Family reports that she has had 4 falls over the last 3 days. Family has noted right-sided weakness causing inability to ambulate or transfer. Compared to yesterday they feel the weakness has improved. They do not want to proceed with aggressive interventions or evaluation, and strongly feel that this is consistent with the patient's previously expressed wishes. CT scan of the head obtained in the emergency department without contrast shows atrophy but no other acute abnormalities. She was admitted to observation status and was given IV fluids overnight for hydration. The initial plan had been for discharge to home after one night of observation. The morning after admission she was noted to have persistent right upper and lower extremity weakness causing marked difficulty with transfers and ambulation. She felt to be not safe for discharge to home and family felt that they would not be able to care for at home given her current condition. She was noted to be mildly agitated and delirious in the emergency department. On admission she was started on melatonin at bedtime as well as Depakote 250 mg twice daily. This regimen seemed to work well and she had no significant delirium or agitation noted during her hospital stay. She will be continued on these medications after discharge. Plan was made to proceed with admission to assisted living memory unit. We again discussed further evaluation or intervention of her probable left CVA with right-sided weakness. Family confirms that they wanted to proceed with palliative care, no further aggressive interventions or evaluation. They would like her treated mainly for comfort, again deciding that this is most appropriate given the patient's previously expressed wishes. She will be discharged to assisted living into a memory unit. Home care services will be arranged including home physical therapy and occupational therapy, to see if she can regain some strength. Activity will be as tolerated and she will resume her usual diet. - Patient Instructions Diet: Usual Diet as Tolerated Activity: As Tolerated Other/Special Instructions: Plan for discharge to memory unit at the assisted living facility in a.m. Please arrange for home care follow-up after discharge with home physical therapy and occupational therapy. Schedule follow-up appointment with primary care provider within one week. - Discharge Plan *PRESCRIPTION DRUG MONITORING PROGRAM REVIEWED*: Not Applicable *COPY OF PRESCRIPTION DRUG MONITORING REPORT IN PATIENT KAVON: Not Applicable Prescriptions/Med Rec: Acetaminophen/HYDROcodone [[place] 325-10 MG] 1 tab PO Q4H PRN #20 tablet PRN Reason: Pain Divalproex Sodium 250 mg PO BIDMEALS #60 tab.cr Melatonin 10 mg PO BEDTIME #30 tablet Home Medications: Home Meds Lisinopril [Zestril] 20 mg PO DAILY 09/14/13 [History] hydroCHLOROthiazide [Hydrochlorothiazide] 12.5 mg PO DAILY 09/14/13 [History] Acetaminophen/HYDROcodone [[place] 325-10 MG] 1 tab PO Q4H PRN #20 tablet [Rx] Divalproex Sodium 250 mg PO BIDMEALS #60 tab.cr 03/12/19 [Rx] Melatonin 10 mg PO BEDTIME #30 tablet 03/12/19 [Rx] Referrals: Galen Wylie MD [Physician] - - Discharge Summary/Plan Comment DC Time >30 min.: No - Patient Data Vitals - Most Recent: Last Vital Signs Temp 98.8 F 03/12/19 14:50 Pulse 95 03/12/19 14:50 Resp 18 03/12/19 14:50 BP 168/55 H 03/12/19 14:50 Pulse Ox 100 03/12/19 14:50 Weight - Most Recent: 134 lb 3.2 oz I&O - Last 24 hours: Intake & Output 03/12/19 03/12/19 03/12/19 06:59 14:59 22:59 Intake Total 200 280 Output Total 100 300 Balance 100 -20 Med Orders - Current: Current Medications Acetaminophen (Tylenol) 650 mg PO Q4H PRN PRN Reason: Pain (Mild 1-3)/fever Last Admin: 03/11/19 00:40 Dose: 650 mg Hydrocodone Bitart/Acetaminophen ([place] 325-10 Mg) 1 tab PO Q4H PRN PRN Reason: Pain Last Admin: 03/12/19 14:17 Dose: 1 tab Aspirin (Aspirin) 81 mg PO DAILY [facility] Last Admin: 03/12/19 08:00 Dose: 81 mg Divalproex Sodium (Divalproex Sodium) 250 mg PO BIDMEALS [facility] Last Admin: 03/12/19 07:55 Dose: 250 mg Enoxaparin Sodium (Lovenox) 40 mg SUBCUT Q24H [facility] Last Admin: 03/11/19 17:07 Dose: 40 mg Hydrochlorothiazide (Hydrochlorothiazide) 12.5 mg PO DAILY [facility] Last Admin: 03/12/19 08:00 Dose: 12.5 mg Lisinopril (Prinivil) 20 mg PO DAILY [facility] Last Admin: 03/12/19 08:00 Dose: 20 mg Melatonin (Melatonin) 9 mg PO BEDTIME [facility] Last Admin: 03/11/19 20:27 Dose: 9 mg Ondansetron HCl (Zofran) 4 mg IV Q4H PRN PRN Reason: Nausea/Vomiting Polyethylene Glycol (Miralax) 17 gm PO DAILY PRN PRN Reason: Constipation Sodium Chloride (Saline Flush) 10 ml FLUSH ASDIRECTED PRN PRN Reason: Keep Vein Open Discontinued Medications Enoxaparin Sodium (Lovenox) 30 mg SUBCUT Q24H [facility] Last Admin: 03/10/19 17:34 Dose: 30 mg Sodium Chloride (Normal Saline) 1,000 mls @ 500 mls/hr IV ASDIRECTED [facility] Last Admin: 03/10/19 13:44 Dose: 500 mls/hr Sodium Chloride (Normal Saline) 1,000 mls @ 75 mls/hr IV ASDIRECTED [facility] Last Admin: 03/11/19 05:38 Dose: 75 mls/hr - Exam Quality Assessment: Reports: DVT Prophylaxis General: Reports: Alert, Cooperative, Mild Distress. Denies: Oriented Lungs: Reports: Clear to Auscultation, Normal Respiratory Effort Cardiovascular: Reports: Regular Rate, Regular Rhythm, No Murmurs GI/Abdominal Exam: Soft, Non-Tender, No Organomegaly, No Distention Neurological: Reports: Normal Speech, Cranial Nerves Intact. Denies: Normal Gait, Strength Equal Bilateral (Moderate right arm and leg weakness)
[2019-03-12] MEDS: Enoxaparin 40 MG/0.4 ML Syringe SUBCUT SCH (17:22)
[2019-03-12] MEDS: Melatonin 3 MG Tab PO SCH (21:47)
[2019-03-13] MEDS: Lisinopril 20 MG Tab PO SCH (09:02)
[2019-03-13] MEDS: Divalproex Sodium Delayed-Release 250 MG Tab.CR PO SCH (09:03)
[2019-03-13] MEDS: Aspirin 81 MG Tab.Chew PO SCH (09:03)
[2019-03-13] MEDS: Hydrochlorothiazide 12.5 MG Cap PO SCH (09:03)
--- NOTE | 2019-03-14 14:12 | PCM.SN ---
- Free Text/Narrative Note: On 03/13/2019 I had a [id number] encounter with Sis Blanchard regarding home equipment. The use of a walker and/or a cane have been ruled out by physical therapy as a safe means to get around her home. A wheelchair is required to complete her ADLs within her home. I deem that this equipment is medically necessary. The diagnosis associated with her necessity is cerebrovascular accident with right-sided weakness (I63.9) rated the length of need is lifetime/ 99 months. Abdi Keenan M.D. NPAndrew [phone]
== END 2019-03-13 16:30 | disposition home health service (06) ==
LOC: JP.ED 10:43 → JP.MS 15:16
PROVIDERS: ADMIT Hospitalist; ATTEND Internal Medicine
DX: R53.1 Weakness (principal); F03.90 Unspecified dementia, unspecified severity, without behavioral disturbance, psychotic disturbance, mood disturbance, and anxiety; S40.012A Contusion of left shoulder, initial encounter; E86.0 Dehydration; Z79.899 Other long term (current) drug therapy; I10 Essential (primary) hypertension; J45.909 Unspecified asthma, uncomplicated; Z87.891 Personal history of nicotine dependence
CPT/HCPCS: 36415; 70450; 73020; 80048; 80053; 82550; 84443; 85025; 85379; 93971; 96361; 96374; 97162; 99285; A9270; J1650; J7030